=== PATIENT | female | born 1935 | race Hispanic/Latino ===

== ENCOUNTER 2017-12-24 09:20 | Emergency (ER) | payer MEDICARE ==
[~2017-12-24] VITALS: Ht 154.9 cm; Wt 69.9 kg
--- NOTE | 2017-12-24 10:23 | Diagnostic Imaging Report ---
Hand Complete CPT code: 83016 Indication:Fourth digit swelling at PIP Technique: Three views of the right hand obtained Comparison: None. Findings: Distal radius and ulna appear intact. Carpal bones appear generally well aligned. There are calcifications of the TFCC. There are mild to moderate degenerative changes of the CMC joint of the first digit. There are mild degenerative changes of the MCP joints of the second and fifth digits. There are osteophytes arising from the base of the proximal phalanx of the fourth metacarpal. There is moderate diffuse proximal and distal IP joint space narrowing and osteophytosis throughout all digits and the IP joint of the first digit. No erosive changes or focal demineralization. No acute fracture or dislocation. Soft tissues: Diffuse soft tissue swelling about the proximal IP joint of the fourth digit. No associated radiopaque foreign bodies or air. There is a 2 mm soft tissue calcification adjacent to the neck of the fifth metacarpal and at the volar surface of the hand overlying the mid third metacarpal. IMPRESSION: Diffuse soft tissue swelling of the fourth digit at the proximal IP joint with moderate degenerative changes. No evidence of acute fracture or erosion. No associated foreign bodies. Degenerative changes throughout the hand and wrist as described above. Signed by: Dr. Etienne Harry MD on 12/24/2017 10:20 AM
== END 2017-12-24 10:36 | disposition home or self-care (01) ==
LOC: FSED 09:20
DX: M79.644 Pain in right finger(s) (principal); M13.841 Other specified arthritis, right hand
CPT/HCPCS: 99283

== ENCOUNTER 2019-05-10 15:10 | Emergency (ER) | payer MEDICARE ==
[~2019-05-10] VITALS: Ht 154.9 cm; Wt 69.9 kg
--- OUTSIDE RECORDS SUMMARY | 2019-05-10 21:14 | XMS REPORT ---
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 Allergies, Adverse Reactions, Alerts This patient has no known allergies or adverse reactions. Medications This patient has no known medications. Results Test Description Test Time Test Comments Text Results Atomic Results Result Comments [facility] 2017[facility] 10:15:00 [place] [address] Patient Name: GRETA ORDOÑEZ MR #: [id number] : 1935 Age/Sex: 82/F Req #: [id number] Adm Physician: Ordered by: ROSS BREEN MD Report #: [id number] Location: [facility] Room/Bed: Procedure: [id number] HOPD/HAND 3 VIEW RT - [facility] Exam Date: 12/24/17 Exam Time: 1000 REPORT STATUS: Signed Hand Complete CPT code: 56133 Indication:Fo urth digit swelling at PIP Technique: Three views of the right hand obtained Comparison: None. Findings: Distal radius and ulna appear intact. Carpal bones appear generally well aligned. There are calcifications of the TFCC. There are mild to moderate degenerative changes of the CMC joint of the first digit. There are mild degenerative changes of the MCP joints of the second and fifth digits. There are osteophytes arising from the base of the proximal phalanx of the fourth metacarpal. There is moderate diffuse proximal and distal IP joint space narrowing and osteophytosis throughout all digits and the IP joint of the first digit. No erosive changes or focal demineralization. No acute fracture or dislocation. Soft tissues: Diffuse soft tissue swelling about the proximal IP joint of the fourth digit. No associated radiopaque foreign bodies or air. There is a 2 mm soft tissue calcification adjacent to the neck of the fifth metacarpal and at the volar surface of the hand overlying the mid third metacarpal. IMPRESSION: Diffuse soft tissue swelling of the fourth digit at the proximal IP joint with moderate degenerative changes. No evidence of acute fracture or erosion. No associated foreign bodies. Degenerative changes throughout the hand and wrist as described above. Signed by: Dr. Migue Harry MD on 12/24/2017 10:20 AM Dictated By: MIGUE HARRY MD 1020 Transcribed By: JASMINE on 12/24/17 1020 COPY TO: ROSS BREEN MD
== END 2019-05-10 16:10 | disposition home or self-care (01) ==
LOC: ER 15:10
DX: R15.9 Full incontinence of feces (principal); I10 Essential (primary) hypertension; E11.9 Type 2 diabetes mellitus without complications
CPT/HCPCS: 99282

== ENCOUNTER → 2020-09-28 | Outpatient (CLI) | payer MEDICARE | LOC: CT 15:36 | PROVIDERS: ATTEND Psychiatry & Neurology Neurology | DX: R41.3 Other amnesia (principal); Z95.0 Presence of cardiac pacemaker | CPT/HCPCS: 70450 ==